=== PATIENT | male | born 1975 | race Caucasian/White ===

== ENCOUNTER 2021-01-30 20:41 | Emergency (ER) | payer OTHER ==
[~2021-01-30] VITALS: Ht 180.3 cm; Wt 122.7 kg
--- NOTE | 2021-01-30 21:26 | PHYS DOC ---
General Adult EDM: Chief Complaint: FOOT INJURY PAIN HPI: HPI: Patient is a 45-year-old male who presents to the ER today for bilateral foot pain. Patient reports that today he stubbed his right fifth toe and was walking with a limp because of that he rolled his left foot. He rates his pain 2 out of 10, does not radiate, worse with movement, alleviated by rest, no treatment prior to arrival. Patient denies any decreased range of motion and any decreased sensation to bilateral lower extremities. (JOELLEN DELACRUZ APRN) Review of Systems: Review of Systems: Constitutional: Denies fever or chills Eyes: Denies change in visual acuity HENT: Denies nasal congestion or sore throat Respiratory: Denies cough or shortness of breath Cardiovascular: Denies chest pain or edema GI: Denies abdominal pain, nausea, vomiting, bloody stools or diarrhea : Denies dysuria Musculoskeletal: Denies back pain or joint pain Integument: Denies rash Neurologic: Denies headache, focal weakness or sensory changes Endocrine: Denies polyuria or polydipsia Lymphatic: Denies swollen glands Psychiatric: Denies depression or anxiety (JOELLEN DELACRUZ APRN) Physical Exam: PE: Constitutional: Well developed, well nourished, no acute distress, non-toxic appearance. [] HENT: Normocephalic, atraumatic Eyes: PERRL, conjunctiva normal, no discharge. [] Neck: Normal range of motion, no stridor Cardiovascular: Normal peripheral perfusion Lungs & Thorax: Normal work of breathing, no tachypnea Skin: Warm, dry, no erythema, no rash, no wounds. [] Back: No tenderness, motion Extremities: No tenderness, no cyanosis, no clubbing, ROM intact, mild swelling noted to the lateral aspect of the left foot, pain with palpation to the left lateral aspect of foot, pain with palpation to right fifth toe with mild erythema, no obvious deformities noted. [] Neurologic: Alert and oriented X 3, normal motor function, normal sensory function, no focal deficits noted. [] Psychologic: Affect normal, judgement normal, mood normal. [] (JOELLEN DELACRUZ APRN) EKG: EKG: [] (JOELLEN DELACRUZ APRN) Radiology/Procedures: Radiology/Procedures: PROCEDURE: TOES RIGHT XR RT TOE 2+ VIEWS, XR FOOT_LEFT 3 VIEWS 01/30/2021 9:30 PM INDICATION: Lateral foot pain, fall COMPARISON: None available. TECHNIQUE: 3 views of the left foot and 3 views of the fifth digit of the right foot are provided. FINDINGS/ IMPRESSION: 1. Left foot: There is an obliquely oriented fracture involving the distal diaphysis of the fifth metatarsal. No intra-articular extension. Regional soft tissue swelling is present. Mild displacement. 2. Right foot: Lateral plate and screw fixation of the metatarsal is noted.. There is an obliquely oriented fracture involving the proximal phalanx of the fourth digit with possible intra-articular extension of the proximal interphalangeal joint. Electronically signed by: Brittany Brasher MD (01/30/2021 9:59 PM) [facility] DICTATED AND SIGNED BY: BRITTANY BRASHER MD DATE: 01/30/212157 CC: EMERGENCY,DEPARTMENT; JOELLEN DELACRUZ APRN; LEILA العراقي DO ~MTH0 0 (JOELLEN DELACRUZ APRN) Heart Score: C/O Chest Pain: No Risk Factors: Risk Factors: DM, Current or recent (<one month) smoker, HTN, HLP, family history of CAD, obesity. Risk Scores: Score 0 - 3: 2.5% MACE over next 6 weeks - Discharge Home Score 4 - 6: 20.3% MACE over next 6 weeks - Admit for Clinical Observation Score 7 - 10: 72.7% MACE over next 6 weeks - Early Invasive Strategies (JOELLEN DELACRUZ APRN) Course & Med Decision Making: Course & Med Decision Making Pertinent Labs and Imaging studies reviewed. (See chart for details) Patient is a 45-year-old male is being seen in the ER today for right fifth toe pain after stubbing it and left lateral foot pain after rolling it today. An x- ray was performed of bilateral feet. The x-ray showed a left distal fifth metatarsal fracture and a right proximal fourth phalanx fracture. Patient's left foot was placed in an Ortho shoe and Ludin wrap. He was advised to follow-up with orthopedic doctor. He was given [facility] orthopedic information. I discussed with patient all findings and diagnostic testing as well as the need to follow-up with PCP for further evaluation and treatment or return to the ER if any new or worsening symptoms. Strict return precautions were also discussed at length. Patient voiced understanding and agreement with the plan. Patient is hemodynamically stable at the time of disposition. (JOELLEN DELACRUZ APRN) Dragon Disclaimer: Sarah Disclaimer: This electronic medical record was generated, in whole or in part, using a voice recognition dictation system. (JOELLEN DELACRUZ APRN) Attending Co-Sign The patient was seen and interviewed as well as examined at the bedside. The chart was reviewed. The case was discussed. Agree with the plan of care. (ASHLEY ANAYA DO) Departure Departure: Impression: Primary Impression: Foot fracture, left Qualified Codes: S92.902A - Unspecified fracture of left foot, initial encounter for closed fracture Additional Impression: Toe fracture, right Qualified Codes: S92.514A - Nondisplaced fracture of proximal phalanx of right lesser toe(s), initial encounter for closed fracture Disposition: HOME / SELF CARE / HOMELESS Condition: GOOD Referrals: LEILA العراقي DO (PCP) Patient Instructions: RICE - Routine Care for Injuries, Toe Fracture Additional Instructions: You are seen in the emergency department today following an injury to your feet. You have fractures in both of your toes. Your symptoms may be improved by something called the rice protocol. This is rest, ice, compression, elevation. Please follow-up when doing intense exercises that may make the pain worse. Use ice packs over the affected areas to help decrease your pain. For the first 24 hours you can apply ice 20 minutes on 20 minutes off for 4 times per day. You can take Tylenol/ibuprofen for pain at home. Sometimes compression such as the use of an Ludin wrap can help with the swelling. Wearing the Ortho shoe for support. You may also elevate the affected area to help with the swelling. You will need to follow-up with an orthopedic doctor. Please contact [facility] orthopedic group at [phone] tomorrow. If you develop worsening of your pain, decreased sensation to your feet, inability to walk, discoloration of your feet please return to the ER immediately. EMERGENCY DEPARTMENT GENERAL DISCHARGE INSTRUCTIONS Thank you for coming to [facility] (ED) today and trusting us with you care. We trust that you had a positivie experience in our Emergency Department. If you wish to speak to the department management, you may call the director at [phone]. YOUR FOLLOW UP INSTRUCTIONS ARE FOLLOWS: 1. Do you have a private Doctor? If you do not have a private doctor, please ask for a resource list of physicians or clinics that may be able to assist you with follow up care. 2. The Emergency Physician has interpreted your x-rays. The X-Ray specialist will also review them. If there is a change in the findings, you will be notified in 48 hours when at all possible. 3. A lab test or culture has been done, your results will be reviewed and you will be notified if you need a change in treatment. ADDITIONAL INSTRUCTIONS AND INFORMATION: 1. Your care today has been supervised by a physician who is specially trained in emergency care. Many problems require more than one evaluation for a complete diagnosis and treatment. We recommend that you schedule your follow up appointment as recommended to ensure complete treatment of you illness or injury. If you are unable to obtain follow up care and continue to have a problem, or if your condition worsens, we recommend that you return to the ED. 2. We are not able to safely determine your condition over the phone nor are we able to give sound medical advice over the phone. For these safety reasons, if you call for medical advice we will ask you to come to the ED for further evaluation. 3. If you have any questions regarding these discharge instructions please call the ED at [phone]. SAFETY INFORMATION: In the interest of safety, wellness, and injury prevention; we encourage you to wear your sealbelt, if you smoke; quite smoking, and we encourage family to use a protective helmet for bicycling and other sporting events that present an increased risk for head injury. IF YOUR SYMPTOMS WORSEN OR NEW SYMPTOMS DEVELOP, OR YOU HAVE CONCERNS ABOUT YOUR CONDITION; OR IF YOUR CONDITION WORSENS WHILE YOU ARE WAITING FOR YOUR FOLLOW UP APPOINTMENT; EITHER CONTACT YOUR PRIMARY CARE DOCTOR, THE PHYSICIAN WHOSE NAME AND NUMBER YOU WERE GIVEN, OR RETURN TO THE ED IMMEDIATELY. JOELLEN DELACRUZ APRN Jan 30, 2021 21:26 ASHLEY ANAYA DO Feb 01, 2021 12:22
[2021-01-30 21:28] VITALS: BP 138/87
--- NOTE | 2021-01-30 22:02 | RAD ---
XR RT TOE 2+ VIEWS, XR FOOT_LEFT 3 VIEWS 01/30/2021 9:30 PM INDICATION: Lateral foot pain, fall COMPARISON: None available. TECHNIQUE: 3 views of the left foot and 3 views of the fifth digit of the right foot are provided. FINDINGS/ IMPRESSION: 1. Left foot: There is an obliquely oriented fracture involving the distal diaphysis of the fifth met atarsal. No intra-articular extension. Regional soft tissue swelling is present. Mild displacement. 2. Right foot: Lateral plate and screw fixation of the metatarsal is noted.. There is an obliquely or iented fracture involving the proximal phalanx of the fourth digit with possible intra-articular exte nsion of the proximal interphalangeal joint. Electronically signed by: Aleyda Redman MD (01/30/2021 9:59 PM) [place]
== END 2021-01-30 22:51 | disposition home or self-care (01) ==
LOC: ER 20:41
DX: S92.352A Displaced fracture of fifth metatarsal bone, left foot, initial encounter for closed fracture (principal); S92.511A Displaced fracture of proximal phalanx of right lesser toe(s), initial encounter for closed fracture; X50.9XXA Other and unspecified overexertion or strenuous movements or postures, initial encounter; Y93.01 Activity, walking, marching and hiking; Y92.89 Other specified places as the place of occurrence of the external cause; Y99.8 Other external cause status
CPT/HCPCS: 73630; 73660; 99284